=== PATIENT | male | born 1990 | race Caucasian/White ===

== ENCOUNTER → 2017-09-15 10:41 | Day surgery (SDC) | payer OTHER ==
[~2017-09-15 10:41] MED LIST: Bacitracin OINTMENT* 0.5% 0.5 oz TUBE ONE; Buffered Lidocaine 0.9% SYRIN* 5 ML/SYR SYRINGE INTRADERM ONE; Buffered Lidocaine 0.9% SYRIN* 5 ML/SYR SYRINGE ONE; Ciprofloxacin 0.3% OPTH.SOL* 2.5 ML BTL ONE; Cisatracurium* 2 MG/ML MDV 5 ML ONE; Dexamethasone IV* 4 MG/ML 1 ML (4 MG) ONE; DiMENhydriNATE IV* 50 MG/ML VIAL IV PUSH PRN; DiMENhydriNATE IV* 50 MG/ML VIAL ONE; EPINEPHRINE 1 MG/ML 1 ML VIAL ONE; Famotidine IV* 10 MG/ML 2 ML (20 mg) IV ONE; Famotidine IV* 10 MG/ML 2 ML (20 mg) ONE; Gelfoam Sponge SIZE 100* SPONGE ONE; Lidocaine 2% EPI 1:200000 MPF* 20 ML VIAL ONE; Lidocaine 2% PF * 5 ML VIAL ONE; Metoclopramide TAB* 10 MG ONE; Metoclopramide TAB* 10 MG PO ONE; Midazolam* 1 MG/ML 5 ML VIAL (5 MG) ONE; Naloxone* 0.4 MG/ML 1 ML VIAL IV PRN; Ondansetron INJ* 2 MG/ML VIAL IV PRN; Ondansetron INJ* 2 MG/ML VIAL ONE; Propofol* 10 MG/ML 20 ML BTL IV PUSH ONE; Scopolamine 1.5 mg* PATCH ONE; Scopolamine 1.5 mg* PATCH TRANSDERM PRN; Scopolamine PATCH Remove* 1 NOTE MISC PATCH OFF ONE; fentaNYL* 50 MCG/ML 2 ML VIAL (100 MCG VIAL) ONE; oxyCODONE/Acetamin 5/325 MG* TAB ONE
[2017-09-15] MEDS: fentaNYL* 50 MCG/ML 2 ML VIAL (100 MCG VIAL) IV PRN ×2 (16:47→16:52)
[2017-09-15] MEDS: oxyCODONE/Acetamin 5/325 MG* TAB PO PRN ×2 (16:50→16:51)
[2017-09-15 18:11] VITALS: BP 134/74
--- NOTE | 2017-09-16 13:49 | OP ---
DATE OF OPERATION: 09/15/17 - SDS DATE OF : 88 SURGEON: Barrett Sorto MD. PRE-OP DIAGNOSIS: Left tympanic membrane perforation with conductive hearing loss. POST-OP DIAGNOSIS: Left tympanic membrane perforation with conductive hearing loss. OPERATIVE PROCEDURE: Left ear tympanoplasty with cartilage graft. BRIEF HISTORY: This 26-year-old gentleman with traumatic injury to the left ear , 6 months . No improvement, has conductive hearing loss, no recent infections of his middle ear. DESCRIPTION OF PROCEDURE: The patient was taken to the operating room, general anesthetic was given, patient intubated. The left ear was then prepped and draped in usual fashion. Margins of the perforation were freshened up with a small hook and the mucosa and epithelium was denuded laterally. I harvested a cartilage graft on the pinna. This was thinned to 2.2 mm and then packed the middle ear with Gelfoam, placed the cartilage graft as an underlay surrounding the margins of the perforation. Small bits of the epithelium were then draped over the margins of the perforation. More Gelfoam was used laterally. The ear was then soaked with ofloxacin. The auricular incision was closed in single layer. Glue was used for closure of the skin. Small cotton ball was applied. The patient was awakened, sent to recovery room in stable condition. Instrument and sponge counts correct. Blood loss minimal. [id number] #: [id number] MTDD
== END | disposition home or self-care (01) ==
LOC: OR 10:18
PROVIDERS: ATTEND Otolaryngology
DX: H72.02 Central perforation of tympanic membrane, left ear (principal); H90.A12 Conductive hearing loss, unilateral, left ear with restricted hearing on the contralateral side; Z88.0 Allergy status to penicillin; Z88.8 Allergy status to other drugs, medicaments and biological substances
CPT/HCPCS: A9270-GY; J1100; J1240; J2250; J2405; J2704; J3010